=== PATIENT | female | born 1970 | race African-American/Black ===

== ENCOUNTER 2017-04-11 11:59 | Emergency (ER) | payer OTHER ==
[~2017-04-11] VITALS: Ht 165.1 cm; Wt 77.1 kg
[~2017-04-11 11:59] MED LIST: ALBU8I INH
[2017-04-11 12:00] VITALS: BP 167/93; PULSE 80; RESP 22; TEMP 98; O2SAT 97
[2017-04-11] MEDS ORDERED: VENTAER INH (12:34)
[2017-04-11] MEDS ORDERED: KETOROLAC TROMETHAMINE 30 MG/ML (IVP) VIAL IVP ONE (12:45)
[2017-04-11] MEDS ORDERED: CLINDAMYCIN 900 MG/NS PREMIX 50 ML IV ONE (12:45)
[2017-04-11] MEDS ORDERED: CLINDAMYCIN INJ 900 MG in SODIUM CHLORIDE 0.9% INJ 100 ML IV ONE (12:45)
[2017-04-11] MEDS ORDERED: SODIUM CHLORIDE 0.9% FLUSH 10 ML FLUSH IVF PRN (12:45)
[2017-04-11 12:53] LABS: AUTOMATED NEUTROPHIL # 7.1 TH/MM3 (1.8-7.7); BASOPHIL # 0.1 TH/MM3 (0-0.2); BASOPHIL % 0.7 % (0.0-2.0); EOSINOPHIL # 0.2 TH/MM3 (0-0.4); EOSINOPHIL % 1.5 % (0.0-4.0); HEMATOCRIT 46.1 % (35.0-46.0); HEMO FLAGS DIFF FINAL; LYMPH % 17.4 % (9.0-44.0); LYMPHOCYTE # 1.8 TH/MM3 (1.0-4.8); MEAN CELL VOLUME 96.5 FL (80.0-100.0); MEAN CORPUSCULAR HEMOGLOBIN 32.5 PG (27.0-34.0); MEAN CORPUSCULAR HGB CONC 33.7 % (32.0-36.0); MONO % 10.3 % (0.0-8.0); NEUT % 70.1 % (16.0-70.0); PLATELET COUNT 313 TH/MM3 (150-450); RED BLOOD COUNT 4.78 MIL/MM3 (4.00-5.30); RED CELL DISTRIBUTION WIDTH 13.9 % (11.6-17.2); WHITE BLOOD COUNT 10.2 TH/MM3 (4.0-11.0)
[2017-04-11 13:16] LABS: ANION GAP 7 MEQ/L (5-15); AST (GOT) 20 U/L (15-37); BICARBONATE 29.7 MEQ/L (21.0-32.0); BLOOD UREA NITROGEN 9 MG/DL (7-18); CHLORIDE 101 MEQ/L (98-107); GLOMERULAR FILTRATION RATE 91 ML/MIN (>89); POTASSIUM 3.7 MEQ/L (3.5-5.1); SODIUM (NA) 138 MEQ/L (136-145)
[2017-04-11 13:17] LABS: ALT (GPT) 19 U/L (10-53)
[2017-04-11 13:19] LABS: ALKALINE PHOSPHATASE 111 U/L (45-117); TOTAL BILIRUBIN ADULT 0.6 MG/DL (0.2-1.0)
--- NOTE | 2017-04-11 13:19 | PD ---
HPI Chief Complaint: Laceration/Skin Injury Time Seen by Provider: 12:14 Travel History International Travel<30 days: No Contact w/Intl Traveler<30days: No Traveled to known affect area: No History of Present Illness HPI Patient is a 46-year-old female presenting to emergency for evaluation of skin lesions. Patient states that they erupt randomly over her body for the last several months. The lesions began as a small pimple, a spontaneously drained and scabbed over. Patient presented today because the lesion on the left hand on the dorsal aspect is red with streaking. Patient states the pain is an 8 out of 10 and reports it as throbbing. She has been taking Aleve to manage the pain. He denies any fever, chills, nausea, vomiting, chest pain, shortness of breath. Patient denies any IV drug use. Patient has been cleaning the wounds with soap and water. PFSH Past Medical History Arthritis: No Asthma: Yes Blood Disorders: No Anxiety: No Depression: No High Cholesterol: No Chemotherapy: No Chest Pain: No Congestive Heart Failure: No COPD: Yes Diabetes: No Diminished Hearing: No Endocrine: No Gastrointestinal Disorders: Yes (ULCERATIVE COLITIS) GERD: Yes Genitourinary: No Hepatitis: No Hiatal Hernia: No Hypertension: Yes Immune Disorder: No Kidney Stones: No Musculoskeletal: Yes Neurologic: No Psychiatric: No Reproductive: No Integumentary: Yes (ABCESS) Immunizations Current: Yes Myocardial Infarction: No Radiation Therapy: No Renal Failure: No Seizures: No Sickle Cell Disease: No Sleep Apnea: No Thyroid Disease: No Tetanus Vaccination: < 5 Years Influenza Vaccination: Yes ?: Not LMP: 2013 : 0 Past Surgical History Abdominal Surgery: No AICD: No Appendectomy: No Cardiac Surgery: No Cholecystectomy: No Ear Surgery: No Endocrine Surgery: No Eye Surgery: No Genitourinary Surgery: No Gynecologic Surgery: No Joint Replacement: Yes Oral Surgery: No Pacemaker: No Thoracic Surgery: No Other Surgery: Yes (hand surgery second to tenosynovitis) Social History Alcohol Use: Yes (occasional) Tobacco Use: Yes (PACK A DAY) Substance Use: Yes (history of drug use, currently denies) Allergies-Medications (Allergen,Severity, Reaction): Coded Allergies: penicillin G (Verified Allergy, Severe, hives, 04/11/17) Reported Meds & Prescriptions Reported Meds & Active Scripts Active Clindamycin (Clindamycin HCl) 300 Mg Cap 300 Mg PO TID 10 Days Mupirocin Topical (Mupirocin) 2 % Oint 1 Applic TOPICAL BID Reported Ventolin Hfa 18 GM Inh (Albuterol Sulfate) 90 Mcg/Act Aer 1 Puff INH Q4H PRN Review of Systems Except as stated in HPI: all other systems reviewed are Neg General / Constitutional: No: Fever, Chills HENT: No: Headaches Cardiovascular: No: Chest Pain or Discomfort Respiratory: No: Shortness of Breath Gastrointestinal: No: Nausea, Abdominal Pain Musculoskeletal: Positive: Pain Skin: Positive Change in Pigmentation, Positive Lesions Physical Exam Narrative GENERAL: Well-developed, well-nourished, alert female. Resting comfortably in no acute distress. SKIN: Warm and dry. Scattered scabbed lesions on patient's right knee. Lesion to dorsal aspect of left hand over the fourth MCP, mild erythema and edema noted. Streaking to just proximal to the left wrist approximately 5 cm. He has been marked. Scabbed lesions other than the one on the left hand have no induration or erythema or warmth noted. Scant pus like drainage from the left breast, Nonfluctuant. HEAD: Atraumatic. Normocephalic. EYES: Pupils equal and round. No scleral icterus. No injection or drainage. ENT: No nasal bleeding or discharge. Mucous membranes pink and moist. NECK: Trachea midline. No JVD. CARDIOVASCULAR: Regular rate and rhythm. RESPIRATORY: No accessory muscle use. Clear to auscultation. Breath sounds equal bilaterally. GASTROINTESTINAL: Abdomen soft, non-tender, nondistended. Hepatic and splenic margins not palpable. MUSCULOSKELETAL: Extremities without clubbing, cyanosis. No obvious deformities. Full range of motion all 4 extremities. NEUROLOGICAL: Awake and alert. No obvious cranial nerve deficits. Motor grossly within normal limits. Five out of 5 muscle strength in the arms and legs. Normal speech. PSYCHIATRIC: Appropriate mood and affect; insight and judgment normal. Data Data Last Documented VS Vital Signs Date Time Temp Pulse Resp B/P (MAP) Pulse Ox O2 Delivery O2 Flow Rate FiO2 04/11/17 12:00 98.0 80 22 167/93 (117) 97 Orders Orders Complete Blood Count With Diff (04/11/17 12:33) Wound Culture And Gram Stain (04/11/17 12:33) Iv Access Insert/Monitor (04/11/17 12:33) Wound Care (04/11/17 12:33) Sodium Chloride 0.9% Flush (Ns Flush) (04/11/17 12:45) Comprehensive Metabolic Panel (04/11/17 12:33) Hand, Complete ([id number]) (04/11/17 ) Blood Culture (04/11/17 12:37) Ketorolac Inj (Toradol Inj) (04/11/17 12:45) Clindamycin 900 Mg Premix (Cleocin 900 M (04/11/17 12:45) Clindamycin (Cleocin) (04/11/17 13:45) Labs Laboratory Tests Test 04/11/17 12:37 White Blood Count 10.2 TH/MM3 Red Blood Count 4.78 MIL/MM3 Hemoglobin 15.5 GM/DL Hematocrit 46.1 % Mean Corpuscular Volume 96.5 FL Mean Corpuscular Hemoglobin 32.5 PG Mean Corpuscular Hemoglobin Concent 33.7 % Red Cell Distribution Width 13.9 % Platelet Count 313 TH/MM3 Mean Platelet Volume 7.7 FL Neutrophils (%) (Auto) 70.1 % Lymphocytes (%) (Auto) 17.4 % Monocytes (%) (Auto) 10.3 % Eosinophils (%) (Auto) 1.5 % Basophils (%) (Auto) 0.7 % Neutrophils # (Auto) 7.1 TH/MM3 Lymphocytes # (Auto) 1.8 TH/MM3 Monocytes # (Auto) 1.0 TH/MM3 Eosinophils # (Auto) 0.2 TH/MM3 Basophils # (Auto) 0.1 TH/MM3 CBC Comment DIFF FINAL Differential Comment Blood Urea Nitrogen 9 MG/DL Creatinine 0.81 MG/DL Random Glucose 94 MG/DL Total Protein 7.6 GM/DL Albumin 3.3 GM/DL Calcium Level 8.8 MG/DL Alkaline Phosphatase 111 U/L Aspartate Amino Transf (AST/SGOT) 20 U/L Alanine Aminotransferase (ALT/SGPT) 19 U/L Total Bilirubin 0.6 MG/DL Sodium Level 138 MEQ/L Potassium Level 3.7 MEQ/L Chloride Level 101 MEQ/L Carbon Dioxide Level 29.7 MEQ/L Anion Gap 7 MEQ/L Estimat Glomerular Filtration Rate 91 ML/MIN [facility] Medical Decision Making Medical Screen Exam Complete: Yes Emergency Medical Condition: Yes Medical Record Reviewed: Yes Interpretation(s) Laboratory Tests Test 04/11/17 12:37 White Blood Count 10.2 TH/MM3 Red Blood Count 4.78 MIL/MM3 Hemoglobin 15.5 GM/DL Hematocrit 46.1 % Mean Corpuscular Volume 96.5 FL Mean Corpuscular Hemoglobin 32.5 PG Mean Corpuscular Hemoglobin Concent 33.7 % Red Cell Distribution Width 13.9 % Platelet Count 313 TH/MM3 Mean Platelet Volume 7.7 FL Neutrophils (%) (Auto) 70.1 % Lymphocytes (%) (Auto) 17.4 % Monocytes (%) (Auto) 10.3 % Eosinophils (%) (Auto) 1.5 % Basophils (%) (Auto) 0.7 % Neutrophils # (Auto) 7.1 TH/MM3 Lymphocytes # (Auto) 1.8 TH/MM3 Monocytes # (Auto) 1.0 TH/MM3 Eosinophils # (Auto) 0.2 TH/MM3 Basophils # (Auto) 0.1 TH/MM3 CBC Comment DIFF FINAL Differential Comment Blood Urea Nitrogen 9 MG/DL Creatinine 0.81 MG/DL Random Glucose 94 MG/DL Total Protein 7.6 GM/DL Albumin 3.3 GM/DL Calcium Level 8.8 MG/DL Alkaline Phosphatase 111 U/L Aspartate Amino Transf (AST/SGOT) 20 U/L Alanine Aminotransferase (ALT/SGPT) 19 U/L Total Bilirubin 0.6 MG/DL Sodium Level 138 MEQ/L Potassium Level 3.7 MEQ/L Chloride Level 101 MEQ/L Carbon Dioxide Level 29.7 MEQ/L Anion Gap 7 MEQ/L Estimat Glomerular Filtration Rate 91 ML/MIN Vital Signs Date Time Temp Pulse Resp B/P (MAP) Pulse Ox O2 Delivery O2 Flow Rate FiO2 04/11/17 12:00 98.0 80 22 167/93 (928) 66 Differential Diagnosis Impetigo versus folliculitis versus cellulitis versus other Narrative Course Patient is a 46-year-old female presenting for evaluation of skin lesions. Patient's vital signs are stable, so signs of systemic illness at this time. Labs and imaging ordered and pending. Wound culture obtained from the left breast. There is no fluctuance noted to any of the lesions in order to perform an I&D. Basic labs ordered and pending. IV access established, patient will be given dose of clindamycin now due to back order of [facility]. Pt was also seen and evaluated by Dr. Ponce. Labs reviewed, no acute abnormalities identified. Hand x-ray with no acute findings. Postsurgical changes noted. Pt will be discharged home with Clindamycin and mupirocin ointment. She was advised to wash with soap and water only, apply abx ointment BID and cover any open area with bandage. She was encouraged to follow up with a PCP or at the [facility]. She was further encouraged to return to the ED for any new or worsening symptoms. Pt and friend verbalized understanding of instructions. Pt stable for discharge. Diagnosis Primary Impression: Cellulitis Qualified Codes: L03.114 - Cellulitis of left upper limb Additional Impression: Skin lesion, superficial Referrals: [facility] Primary Care Physician Patient Instructions: Cellulitis (ED), General Instructions Additional Instructions: Apply topical mupirocin ointment twice daily after washing the area with soap and water. Cover any open areas with Band-Aid or similar dressing Complete full course of antibiotics as prescribed Follow-up with a primary doctor or at the [facility] Return to emergency department for any new or worsening symptoms Med/Other Pt SpecificInfo: Prescription(s) given Scripts Clindamycin (Clindamycin) 300 Mg Cap 300 MG PO TID for Infection for 10 Days, CAP 0 Refills Prov: Roxana Yañez 04/11/17 Mupirocin Topical (Mupirocin Topical) 2 % Oint 1 APPLIC TOPICAL BID for Mgmt Bacterial Infection, #22 GM 1 Refill Prov: Roxana Yañez 04/11/17 Disposition: 01 DISCHARGE HOME Condition: Stable Roxana Yañez Apr 11, 2017 13:19
[2017-04-11] MEDS ORDERED: MUPI2OIN TOPICAL (13:36)
[2017-04-11] MEDS ORDERED: CLIN300C5 PO (13:36)
--- NOTE | 2017-04-11 13:37 | PD ---
Data Data Last Documented VS Vital Signs Date Time Temp Pulse Resp B/P (MAP) Pulse Ox O2 Delivery O2 Flow Rate FiO2 04/11/17 12:00 98.0 80 22 167/93 (117) 97 Orders Orders Complete Blood Count With Diff (04/11/17 12:33) Wound Culture And Gram Stain (04/11/17 12:33) Iv Access Insert/Monitor (04/11/17 12:33) Wound Care (04/11/17 12:33) Sodium Chloride 0.9% Flush (Ns Flush) (04/11/17 12:45) Comprehensive Metabolic Panel (04/11/17 12:33) Hand, Complete ([id number]) (04/11/17 ) Blood Culture (04/11/17 12:37) Ketorolac Inj (Toradol Inj) (04/11/17 12:45) Clindamycin 900 Mg Premix (Cleocin 900 M (04/11/17 12:45) Clindamycin (Cleocin) (04/11/17 13:45) Labs Laboratory Tests Test 04/11/17 12:37 White Blood Count 10.2 TH/MM3 Red Blood Count 4.78 MIL/MM3 Hemoglobin 15.5 GM/DL Hematocrit 46.1 % Mean Corpuscular Volume 96.5 FL Mean Corpuscular Hemoglobin 32.5 PG Mean Corpuscular Hemoglobin Concent 33.7 % Red Cell Distribution Width 13.9 % Platelet Count 313 TH/MM3 Mean Platelet Volume 7.7 FL Neutrophils (%) (Auto) 70.1 % Lymphocytes (%) (Auto) 17.4 % Monocytes (%) (Auto) 10.3 % Eosinophils (%) (Auto) 1.5 % Basophils (%) (Auto) 0.7 % Neutrophils # (Auto) 7.1 TH/MM3 Lymphocytes # (Auto) 1.8 TH/MM3 Monocytes # (Auto) 1.0 TH/MM3 Eosinophils # (Auto) 0.2 TH/MM3 Basophils # (Auto) 0.1 TH/MM3 CBC Comment DIFF FINAL Differential Comment Blood Urea Nitrogen 9 MG/DL Creatinine 0.81 MG/DL Random Glucose 94 MG/DL Total Protein 7.6 GM/DL Albumin 3.3 GM/DL Calcium Level 8.8 MG/DL Alkaline Phosphatase 111 U/L Aspartate Amino Transf (AST/SGOT) 20 U/L Alanine Aminotransferase (ALT/SGPT) 19 U/L Total Bilirubin 0.6 MG/DL Sodium Level 138 MEQ/L Potassium Level 3.7 MEQ/L Chloride Level 101 MEQ/L Carbon Dioxide Level 29.7 MEQ/L Anion Gap 7 MEQ/L Estimat Glomerular Filtration Rate 91 ML/MIN MDM Supervised Visit with MALVIN: Yes Narrative Course The history, exam, and medical decision-making in the associated mid-level provider note were completed with my assistance. I reviewed and agree with the findings presented. I attest that I had a [id number] encounter with the patient on the same day, and personally performed and documented my assessment and findings in the medical record. *My assessment and Findings: 46 year-old woman with multifocal skin infection, mostly superficial, left hand with a little bit of lymphangiitis. No fevers. No evidence of sepsis. Given IV clindamycin. [facility] is out of stock. We'll continue clindamycin. Outpatient follow-up. Diagnosis Primary Impression: Cellulitis Qualified Codes: L03.114 - Cellulitis of left upper limb Additional Impression: Skin lesion, superficial Referrals: [facility] Primary Care Physician Patient Instructions: General Instructions, Cellulitis (ED) Additional Instruction: Apply topical mupirocin ointment twice daily after washing the area with soap and water. Cover any open areas with Band-Aid or similar dressing Complete full course of antibiotics as prescribed Follow-up with a primary doctor or at the [facility] Return to emergency department for any new or worsening symptoms Scripts Clindamycin (Clindamycin) 300 Mg Cap 300 MG PO TID for Infection for 10 Days, CAP 0 Refills Prov: Roxana Yañez 04/11/17 Mupirocin Topical (Mupirocin Topical) 2 % Oint 1 APPLIC TOPICAL BID for Mgmt Bacterial Infection, #22 GM 1 Refill Prov: Roxana Yañez 04/11/17 Disposition: 01 DISCHARGE HOME Condition: Stable Seth Ponce MD Apr 11, 2017 13:37
[2017-04-11] MEDS ORDERED: CLINDAMYCIN 150 MG CAP PO ONE (13:45)
--- NOTE | 2017-04-11 13:47 | RADRPT ---
EXAM DATE/TIME: 04/11/2017 13:02 [facility] COMPARISON: HAND LEFT COMPLETE ([id number]), February 08, 2015, 17:10. INDICATIONS : Pain from laceration on back of hand between fourth and fifth metacarpals from 02/08/17. MEDICAL HISTORY : None. SURGICAL HISTORY : Surgical repair, fifth metacarpal. Surgical repair, first digit. ENCOUNTER: [facility] ACUITY: 2 months PAIN SCORE: 5/10 LOCATION: Left hand. FINDINGS: Postsurgical features of prior screw fixation of the fifth metacarpal. Hardware is intact. There is m ature bony remodeling. Remaining osseous structures are intact without acute bony fracture or focal b malik destruction. No radiopaque foreign bodies or soft tissue emphysema. No significant soft tissue ed robe. CONCLUSION: 1. Healed old fifth metacarpal fracture. 2. No acute fracture or dislocation. Cj Cooper MD on April 11, 2017 at 13:42 Board Certified Radiologist. This report was verified electronically.
[2017-04-11 14:00] VITALS: RESP 16
[2017-04-11 14:25] VITALS: BP 118/83; TEMP 98
== END 2017-04-11 14:25 | disposition home or self-care (01) ==
LOC: NEPE 11:59
DX: L03.114 Cellulitis of left upper limb (principal); L98.9 Disorder of the skin and subcutaneous tissue, unspecified; J44.9 Chronic obstructive pulmonary disease, unspecified; I10 Essential (primary) hypertension; K21.9 Gastro-esophageal reflux disease without esophagitis; F17.200 Nicotine dependence, unspecified, uncomplicated
CPT/HCPCS: 73130; 80053; 85025; 87040; 87070; 96365; 96375; 99284; J1885